=== PATIENT | female | born 1965 | race Caucasian/White ===

== ENCOUNTER 2022-05-14 08:10 | Day surgery (SDC) | payer BC ==
[2022-05-13 11:03] VITALS: BMI 21.9
[2022-05-14 09:47] VITALS: RESP 18; TEMP 98
[2022-05-14 10:11] VITALS: BP 110/66; PULSE 75
== END 2022-05-14 10:35 | disposition home or self-care (01) ==
LOC: FASU-ENDO 08:10
PROVIDERS: ATTEND Internal Medicine Gastroenterology
PROC: 0DJD8ZZ Inspection of Lower Intestinal Tract, Via Natural or Artificial Opening Endoscopic (ICD-10-PCS; principal; 2022-05-14 09:31)
DX: Z12.11 Encounter for screening for malignant neoplasm of colon (principal); Z86.010 Personal history of colon polyps; Z83.71 Family history of colonic polyps